=== PATIENT | female | born 1975 | race Caucasian/White ===

== ENCOUNTER 2017-06-01 03:52 | Emergency (ER) | payer OTHER ==
[~2017-06-01] VITALS: Ht 167.6 cm; Wt 59.1 kg
[~2017-06-01 03:52] MED LIST: Z.0.NO CURRENT MEDS
[2017-06-01 04:03] VITALS: BP 172/98; PULSE 80; RESP 14; TEMP 98.1; O2SAT 100
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
[2017-06-01 04:50] LABS: AUTOMATED NEUTROPHIL # 3.8 TH/MM3 (1.8-7.7); BASOPHIL % 0.6 % (0.0-2.0); EOSINOPHIL # 0.1 TH/MM3 (0-0.4); EOSINOPHIL % 1.1 % (0.0-4.0); HEMATOCRIT 36.9 % (35.0-46.0); HEMO FLAGS DIFF FINAL; LYMPHOCYTE # 3.1 TH/MM3 (1.0-4.8); MEAN CELL VOLUME 85.6 FL (80.0-100.0); MEAN CORPUSCULAR HEMOGLOBIN 28.7 PG (27.0-34.0); MEAN CORPUSCULAR HGB CONC 33.5 % (32.0-36.0); MONO % 5.7 % (0.0-8.0); NEUT % 50.6 % (16.0-70.0); PLATELET COUNT 242 TH/MM3 (150-450); RED BLOOD COUNT 4.31 MIL/MM3 (4.00-5.30); RED CELL DISTRIBUTION WIDTH 14.8 % (11.6-17.2); WHITE BLOOD COUNT 7.5 TH/MM3 (4.0-11.0)
[2017-06-01 04:53] LABS: ALT (GPT) 17 U/L (10-53); ANION GAP 6 MEQ/L (5-15); AST (GOT) 12 U/L (15-37); BICARBONATE 28.2 MEQ/L (21.0-32.0); BLOOD UREA NITROGEN 9 MG/DL (7-18); CHLORIDE 107 MEQ/L (98-107); GLOMERULAR FILTRATION RATE 100 ML/MIN (>89); POTASSIUM 4.4 MEQ/L (3.5-5.1); SODIUM (NA) 141 MEQ/L (136-145)
[2017-06-01 04:56] LABS: ALKALINE PHOSPHATASE 72 U/L (45-117); TOTAL BILIRUBIN ADULT 0.2 MG/DL (0.2-1.0)
[2017-06-01 05:02] LABS: ACETAMINOPHEN LESS THAN 2.0 MCG/ML (10.0-30.0); ALCOHOL 17 MG/DL (0-5)
[2017-06-01 08:18] VITALS: BP 144/89; RESP 16; O2SAT 100
[2017-06-01 09:53] LABS: BLOOD, URINE NEG (NEG); COMMENT (UR) CULT NOT INDICATED; CULTURE IF INDICATED CULT NOT INDICATED; GLUCOSE,URINE NEG (NEG); KETONE, URINE NEG (NEG); MUCUS URINE FEW /lpf (OCC); NITRITE,URINE NEG (NEG); PH, URINE 6.5 (5.0-8.5); SQUAMOUS EPITHELIAL CELL URINE 1 /hpf (0-5); URINE COLOR YELLOW (YELLW/STRAW)
[2017-06-01 17:28] VITALS: BP 150/88; PULSE 80; RESP 18; O2SAT 99
[2017-06-02 06:14] VITALS: BP 134/76; PULSE 95; RESP 18; O2SAT 99
[2017-06-02 09:30] VITALS: BP 150/88; PULSE 95; RESP 18; O2SAT 100
--- NOTE | 2017-06-02 09:32 | PD ---
Physical Exam Date Seen by Provider: Jun 02, 2017 Time Seen by Provider: 09:29 Data Data Last Documented VS Vital Signs Date Time Temp Pulse Resp B/P (MAP) Pulse Ox O2 Delivery O2 Flow Rate FiO2 06/02/17 06:14 95 18 134/76 (95) 99 Room Air 06/01/17 04:03 98.1 Orders Orders Complete Blood Count With Diff (06/01/17 04:09) Comprehensive Metabolic Panel (06/01/17 04:09) Urinalysis - C+S If Indicated (06/01/17 04:09) Psych Screen (06/01/17 04:09) Drug Screen, Random Urine (06/01/17 04:09) Alcohol (Ethanol) (06/01/17 04:09) Salicylates (Aspirin) (06/01/17 04:09) Tylenol (Acetaminophen) (06/01/17 04:09) Diet Regular Basic (06/01/17 Breakfast) Diet Regular Basic (06/01/17 Dinner) Ed Discharge Order (06/02/17 09:28) Labs Laboratory Tests Test 06/01/17 04:30 06/01/17 09:30 White Blood Count 7.5 TH/MM3 Red Blood Count 4.31 MIL/MM3 Hemoglobin 12.4 GM/DL Hematocrit 36.9 % Mean Corpuscular Volume 85.6 FL Mean Corpuscular Hemoglobin 28.7 PG Mean Corpuscular Hemoglobin Concent 33.5 % Red Cell Distribution Width 14.8 % Platelet Count 242 TH/MM3 Mean Platelet Volume 8.7 FL Neutrophils (%) (Auto) 50.6 % Lymphocytes (%) (Auto) 42.0 % Monocytes (%) (Auto) 5.7 % Eosinophils (%) (Auto) 1.1 % Basophils (%) (Auto) 0.6 % Neutrophils # (Auto) 3.8 TH/MM3 Lymphocytes # (Auto) 3.1 TH/MM3 Monocytes # (Auto) 0.4 TH/MM3 Eosinophils # (Auto) 0.1 TH/MM3 Basophils # (Auto) 0.0 TH/MM3 CBC Comment DIFF FINAL Differential Comment Blood Urea Nitrogen 9 MG/DL Creatinine 0.65 MG/DL Random Glucose 86 MG/DL Total Protein 7.5 GM/DL Albumin 3.8 GM/DL Calcium Level 8.1 MG/DL Alkaline Phosphatase 72 U/L Aspartate Amino Transf (AST/SGOT) 12 U/L Alanine Aminotransferase (ALT/SGPT) 17 U/L Total Bilirubin 0.2 MG/DL Sodium Level 141 MEQ/L Potassium Level 4.4 MEQ/L Chloride Level 107 MEQ/L Carbon Dioxide Level 28.2 MEQ/L Anion Gap 6 MEQ/L Estimat Glomerular Filtration Rate 100 ML/MIN Salicylates Level 2.9 MG/DL Acetaminophen Level LESS THAN 2.0 MCG/ML Ethyl Alcohol Level 17 MG/DL Urine Color YELLOW Urine Turbidity CLEAR Urine pH 6.[address] 1.017 Urine Protein NEG mg/dL Urine Glucose (UA) NEG mg/dL Urine Ketones NEG mg/dL Urine Occult Blood NEG Urine Nitrite NEG Urine Bilirubin NEG Urine Urobilinogen LESS THAN 2.0 MG/DL Urine Leukocyte Esterase TRACE Urine RBC 1 /hpf Urine WBC 7 /hpf Urine Squamous Epithelial Cells 1 /hpf Urine Mucus FEW /lpf Microscopic Urinalysis Comment CULT NOT INDICATED Urine Opiates Screen NEG Urine Barbiturates Screen NEG Urine Amphetamines Screen NEG Urine Benzodiazepines Screen NEG Urine Cocaine Screen POS Urine Cannabinoids Screen POS MDM Medical Record Reviewed: Yes Supervised Visit with STEPHIE: Yes Narrative Course 41 year-old female presented to the emergency room previously under dang act for suicidal ideations. No plan. No medical complaints. Seen by psychiatrist and dang act lifted; patient is not felt to be a threat to self or others. Follow-up per psychiatrist recommendation. Patient is stable for discharge. Diagnosis Primary Impression: Medical clearance for psychiatric admission Scripts No Active Prescriptions or Reported Meds Disposition: 01 DISCHARGE HOME Condition: Stable Mary Ramos Jun 02, 2017 09:32
--- NOTE | 2017-06-02 12:26 | PD ---
History of Present Illness Chief Complaint: Psychiatric Symptoms Time Seen by Provider: 08:45 Travel History International Travel<30 Days: No Contact w/Intl Traveler<30days: No Known affected area: No Legal Status Legal Status: Dubon Act Dubon Act Signed By: Lachelle Galindo Dubon Act Comment: ZORA LOPEZ Badge#[id number], Case#[id number], 06/01/17 , 0310am History of Present Illness: Patient brought in under a Dubon act for suicidal behavior. At this time, the patient denies any suicidal or homicidal ideation, plan or intent. She demonstrates no psychotic thinking and her cognition is intact. She is verbally rigoberto for safety and she is competent to do so. She was noted to be positive for cocaine and this was discussed with her. Patient would like to go home and seek follow up on an outpatient basis. This physician recommended her for treatment at [facility] ([facility] She is able to care for herself and she does not meet Dubon act criteria at this time. PFSH Past Medical History Bipolar Disorder: Yes Anxiety: Yes Depression: Yes Diabetes: No Diminished Hearing: No Psychiatric: Yes (ptsd) Reproductive: Yes (OVARIAN CYST) Immunizations Current: Yes Tetanus Vaccination: > 5 Years Influenza Vaccination: No ?: Not LMP: 05/25/17 : 4 Para: 2 Miscarriage: 2 Ovarian Cysts: Yes Dilation and Curettage (D&C): Yes (*2) Tubal Ligation: Yes Past Surgical History Section: Yes (X2) Gynecologic Surgery: Yes Psychiatric History Psychiatric History Hx Psychiatric Treatment: Last admitted to [facility] 2 months ago. History of Inpatient Treatment: Yes Guns or firearms in home: No Social History Hx Alcohol Use: Yes Hx Tobacco Use: No (2PPW) Hx Substance Use: Yes Substance Use Type: Marijuana, Nicotine/Cigarettes, Cocaine Other Substances Used: Pt says that she uses street drugs to self medicate Hx of Substance Use Treatment: Yes Allergies-Medications (Allergen,Severity, Reaction): Coded Allergies: iodine (Unverified Allergy, Severe, Anaphylaxis, 06/01/17) potassium iodide (Unverified Allergy, Severe, Anaphylaxis, 06/01/17) povidone-iodine (Unverified Allergy, Severe, Anaphylaxis, 06/01/17) sodium iodide (Unverified Allergy, Severe, Anaphylaxis, 06/01/17) sodium iodide (Unverified Allergy, Severe, Anaphylaxis, 06/01/17) Reported Meds & Prescriptions Reported Meds & Active Scripts Active No Active Prescriptions or Reported Medications Review of Systems Except as stated in HPI: all other systems reviewed are Neg Mental Status Examination Appearance: Appropriate Consciousness: Alert Orientation: x4 Motor Activity: Normal gait Speech: Unremarkable Language: Adequate Fund of Knowledge: Adequate Attention and Concentration: Adequate Memory: Unremarkable Mood: Appropriate Affect: Appropriate Thought Process & Associations: Intact Thought Content: Appropriate Hallucination Type: None Delusion Type: None Suicidal Ideation: No Suicidal Plan: No Suicidal Intention: No Homicidal Ideation: No Homicidal Plan: No Homicidal Intention: No Insight: Adequate Judgment: Adequate MDM Medical Decision Making Medical Record Reviewed: Yes Assessment/Plan Patient interviewed at bedside, medical record reviewed and case discussed with nurse, Phil. Patient informed by this physician that she should discontinue use of cocaine and seek follow up treatment at [facility] ([facility]). However, she does not meet Dubon act criteria and she is verbally and competently rigoberto for safety. Therefore, this physician is lifting her Dubon act and discharging her to friends and family. Orders Orders Diet Regular Basic (06/01/17 Dinner) Ed Discharge Order (06/02/17 09:28) Results Vital Signs Date Time Temp Pulse Resp B/P (MAP) Pulse Ox O2 Delivery O2 Flow Rate FiO2 06/02/17 09:33 06/02/17 09:30 95 18 150/88 (108) 100 Room Air 06/02/17 06:14 95 18 134/76 (95) 99 Room Air 06/01/17 17:28 80 18 150/88 (108) 99 Room Air Diagnosis Primary Impression: Cocaine abuse Additional Impression: Medical clearance for psychiatric admission Referrals: [facility] (Out patient) as needed [facility] as needed Mental Health and Substance Abuse Departure Forms: Tests/Procedures Patient Instructions: General Instructions, Cocaine Abuse (ED), Medical Clearance for Psychiatric Care (ED) Additional Instructions: DX: Cocaine Abuse Please return to ED if symptoms worsen. Prescriptions No Active Prescriptions or Reported Meds Disposition: 01 DISCHARGE HOME Condition: Stable Problem Qualifiers Leo Cedeño MD Jun 02, 2017 12:26
== END 2017-06-02 10:54 | disposition home or self-care (01) ==
LOC: NEPD 03:52 → NEPJ 06-02 10:54
DX: Z02.89 Encounter for other administrative examinations (principal); F14.10 Cocaine abuse, uncomplicated; Z86.59 Personal history of other mental and behavioral disorders
CPT/HCPCS: 80053; 80307; 81001; 85025; 99284

== ENCOUNTER 2017-07-15 08:22 | Emergency (ER) | payer OTHER ==
[~2017-07-15] VITALS: Ht 170.2 cm; Wt 57.0 kg
[2017-07-15 08:52] VITALS: BP 152/94; PULSE 99; RESP 24; TEMP 97.8; O2SAT 98
[2017-07-15] MEDS ORDERED: LORazepam 2 MG/ML VIAL IV PUSH ONE (09:00)
--- NOTE | 2017-07-15 09:01 | PD ---
HPI Chief Complaint: Psychiatric Symptoms Time Seen by Provider: 08:55 Travel History International Travel<30 days: No Contact w/Intl Traveler<30days: No Traveled to known affect area: No History of Present Illness HPI 41-year-old female presents to emergency department as a Dubon act from [place]. Patient has difficulty giving us information regarding her history and speaks in short sentences and rarely make sense. The police suspected she was on Renee. Patient denies suicidal or homicidal ideations. PFSH Past Medical History Bipolar Disorder: Yes Anxiety: Yes Depression: Yes Diabetes: No Diminished Hearing: No Psychiatric: Yes (ptsd) Reproductive: Yes (OVARIAN CYST) Immunizations Current: Yes ?: Not LMP: JUN 2017 : 4 Para: 2 Miscarriage: 2 Ovarian Cysts: Yes Dilation and Curettage (D&C): Yes (*2) Tubal Ligation: Yes Past Surgical History Section: Yes (X2) Gynecologic Surgery: Yes Social History Alcohol Use: Yes Tobacco Use: No (2PPW) Substance Use: Yes Allergies-Medications (Allergen,Severity, Reaction): Coded Allergies: iodine (Unverified Allergy, Severe, Anaphylaxis, 07/15/17) potassium iodide (Unverified Allergy, Severe, Anaphylaxis, 07/15/17) povidone-iodine (Unverified Allergy, Severe, Anaphylaxis, 07/15/17) sodium iodide (Unverified Allergy, Severe, Anaphylaxis, 07/15/17) sodium iodide (Unverified Allergy, Severe, Anaphylaxis, 07/15/17) Reported Meds & Prescriptions Reported Meds & Active Scripts Active No Active Prescriptions or Reported Medications Review of Systems Except as stated in HPI: all other systems reviewed are Neg Physical Exam Narrative GENERAL: Well-developed well-nourished in mild distress SKIN: Focused skin assessment warm/dry. HEAD: Atraumatic. Normocephalic. EYES: Pupils equal and round. No scleral icterus. No injection or drainage. ENT: No nasal bleeding or discharge. Mucous membranes pink and moist. NECK: Trachea midline. No JVD. CARDIOVASCULAR: Regular rate and rhythm. No murmur appreciated. RESPIRATORY: No accessory muscle use. Clear to auscultation. Breath sounds equal bilaterally. MUSCULOSKELETAL: No obvious deformities. No clubbing. No cyanosis. No edema. NEUROLOGICAL: Awake and alert. No obvious cranial nerve deficits. Motor grossly within normal limits. Normal speech. PSYCHIATRIC: Mood normal, moving around in bed anxious Data Data Last Documented VS Vital Signs Date Time Temp Pulse Resp B/P (MAP) Pulse Ox O2 Delivery O2 Flow Rate FiO2 07/15/17 17:15 84 16 114/80 (91) 97 Room Air 07/15/17 08:52 97.8 Orders Orders Complete Blood Count With Diff (07/15/17 08:58) Comprehensive Metabolic Panel (07/15/17 08:58) Ed Urine Pregnancytest Poc (07/15/17 08:58) Psych Screen (07/15/17 08:58) Lorazepam Inj (Ativan Inj) (07/15/17 09:00) Drug Screen, Random Urine (07/15/17 08:58) Alcohol (Ethanol) (07/15/17 08:58) Salicylates (Aspirin) (07/15/17 08:58) Tylenol (Acetaminophen) (07/15/17 08:58) Potassium Chloride (Kcl) (07/15/17 10:00) Diet Regular Basic (07/15/17 Dinner) Tramadol (Ultram) (07/15/17 18:45) Labs Laboratory Tests Test 07/15/17 09:10 White Blood Count 12.0 TH/MM3 Red Blood Count 4.50 MIL/MM3 Hemoglobin 13.9 GM/DL Hematocrit 39.3 % Mean Corpuscular Volume 87.3 FL Mean Corpuscular Hemoglobin 30.9 PG Mean Corpuscular Hemoglobin Concent 35.4 % Red Cell Distribution Width 15.1 % Platelet Count 251 TH/MM3 Mean Platelet Volume 9.2 FL Neutrophils (%) (Auto) 67.5 % Lymphocytes (%) (Auto) 21.1 % Monocytes (%) (Auto) 9.4 % Eosinophils (%) (Auto) 1.3 % Basophils (%) (Auto) 0.7 % Neutrophils # (Auto) 8.1 TH/MM3 Lymphocytes # (Auto) 2.5 TH/MM3 Monocytes # (Auto) 1.1 TH/MM3 Eosinophils # (Auto) 0.2 TH/MM3 Basophils # (Auto) 0.1 TH/MM3 CBC Comment DIFF FINAL Differential Comment Blood Urea Nitrogen 22 MG/DL Creatinine 0.96 MG/DL Random Glucose 91 MG/DL Total Protein 8.0 GM/DL Albumin 4.4 GM/DL Calcium Level 8.7 MG/DL Alkaline Phosphatase 76 U/L Aspartate Amino Transf (AST/SGOT) 19 U/L Alanine Aminotransferase (ALT/SGPT) 21 U/L Total Bilirubin 0.9 MG/DL Sodium Level 137 MEQ/L Potassium Level 3.2 MEQ/L Chloride Level 105 MEQ/L Carbon Dioxide Level 24.2 MEQ/L Anion Gap 8 MEQ/L Estimat Glomerular Filtration Rate 64 ML/MIN Salicylates Level 2.6 MG/DL Urine Opiates Screen NEG Acetaminophen Level LESS THAN 2.0 MCG/ML Urine Barbiturates Screen NEG Urine Amphetamines Screen POS Urine Benzodiazepines Screen POS Urine Cocaine Screen POS Urine Cannabinoids Screen POS Ethyl Alcohol Level LESS THAN 3 MG/DL MDM Medical Decision Making Medical Screen Exam Complete: Yes Emergency Medical Condition: Yes Differential Diagnosis Suicidal ideations versus homicidal ideations versus substance abuse versus substance abuse Narrative Course 41-year-old female presents to emergency department as a Dubon act from [place]. Patient has difficulty giving us information regarding her history and speaks in short sentences and rarely make sense. The police suspected she was on Renee. Patient denies suicidal or homicidal ideations. Vital signs stable Labs- positive for cannabinoids, cocaine, benzos, and amphetamines. Patient cleared to see psych. Dr. Cedeño saw this patient and lifted the BA as it was not an appropriate action for this patient. Pt was on drugs at the time. Pt was allowed to sober and was reassessed multiple times throughout her visit. Pt was complaining of pain and administered tramadol. By mouth challenge successful. Patient up and about during able to ambulate and urinate on her own. Patient is discharge. Advised to return to primary care physician for follow-up. Avoid drugs and alcohol. Follow up with Ryan Martinez. Return to the emergency department for worsening persistent symptoms. Diagnosis Primary Impression: Cocaine abuse Additional Impression: Polysubstance abuse Referrals: Primary Care Physician Additional Instructions: Follow up with Ryan Martinez. Follow-up with primary care within 2-3 days. If your symptoms persist or worsen return to the emergency department Scripts No Active Prescriptions or Reported Meds Disposition: 01 DISCHARGE HOME Condition: Stable Shanelle Small Jul 15, 2017 09:01
[2017-07-15 09:37] LABS: AUTOMATED NEUTROPHIL # 8.1 TH/MM3 (1.8-7.7); BASOPHIL # 0.1 TH/MM3 (0-0.2); BASOPHIL % 0.7 % (0.0-2.0); EOSINOPHIL # 0.2 TH/MM3 (0-0.4); EOSINOPHIL % 1.3 % (0.0-4.0); HEMATOCRIT 39.3 % (35.0-46.0); HEMO FLAGS DIFF FINAL; LYMPH % 21.1 % (9.0-44.0); LYMPHOCYTE # 2.5 TH/MM3 (1.0-4.8); MEAN CELL VOLUME 87.3 FL (80.0-100.0); MEAN CORPUSCULAR HEMOGLOBIN 30.9 PG (27.0-34.0); MEAN CORPUSCULAR HGB CONC 35.4 % (32.0-36.0); MONO % 9.4 % (0.0-8.0); NEUT % 67.5 % (16.0-70.0); PLATELET COUNT 251 TH/MM3 (150-450); RED CELL DISTRIBUTION WIDTH 15.1 % (11.6-17.2)
[2017-07-15 09:51] LABS: ANION GAP 8 MEQ/L (5-15); AST (GOT) 19 U/L (15-37); BICARBONATE 24.2 MEQ/L (21.0-32.0); BLOOD UREA NITROGEN 22 MG/DL (7-18); CHLORIDE 105 MEQ/L (98-107); GLOMERULAR FILTRATION RATE 64 ML/MIN (>89); POTASSIUM 3.2 MEQ/L (3.5-5.1); SODIUM (NA) 137 MEQ/L (136-145)
[2017-07-15 09:52] LABS: ALT (GPT) 21 U/L (10-53)
[2017-07-15 09:54] LABS: ALKALINE PHOSPHATASE 76 U/L (45-117); TOTAL BILIRUBIN ADULT 0.9 MG/DL (0.2-1.0)
[2017-07-15 09:55] LABS: ACETAMINOPHEN LESS THAN 2.0 MCG/ML (10.0-30.0); ALCOHOL LESS THAN 3 MG/DL (0-5)
[2017-07-15] MEDS ORDERED: POTASSIUM CHLORIDE 10 MEQ CONTROLLED RELEASE TAB PO ONE (10:00)
--- NOTE | 2017-07-15 13:17 | PD ---
History of Present Illness Chief Complaint: Psychiatric Symptoms Time Seen by Provider: 13:00 Travel History International Travel<30 Days: No Contact w/Intl Traveler<30days: No Known affected area: No Legal Status Legal Status: [place] Act History of Present Illness: 41-year-old female under inappropriate [place] act by police, positive for benzodiazepines, cocaine, cannabinoids, and amphetamines. [place] act law does not apply to people who have primary drug and alcohol issues. Patient apparently arrived still intoxicated and therefore this physician cannot recommend discharge until ED attending feels patient is safe to go. However, [place] act is being lifted as it does not apply to this individual and she is not threatening or attempting to harm herself. PFSH Past Medical History Bipolar Disorder: Yes Anxiety: Yes Depression: Yes Diabetes: No Diminished Hearing: No Psychiatric: Yes (ptsd) Reproductive: Yes ([employer] CYST) Immunizations Current: Yes ?: Not LMP: JUN 2017 : 4 Para: 2 Miscarriage: 2 Ovarian Cysts: Yes Dilation and Curettage (D&C): Yes Tubal Ligation: Yes Past Surgical History Section: Yes (X2) Gynecologic Surgery: Yes Psychiatric History Psychiatric History Hx Psychiatric Treatment: Last admitted to [facility] 2 months ago. History of Inpatient Treatment: Yes Guns or firearms in home: No Social History Hx Alcohol Use: Yes Hx Tobacco Use: Yes Hx Substance Use: Yes Substance Use Type: Marijuana, Nicotine/Cigarettes, Cocaine Other Substances Used: Pt says that she uses street drugs to self medicate Hx of Substance Use Treatment: Yes Allergies-Medications (Allergen,Severity, Reaction): Coded Allergies: iodine (Unverified Allergy, Severe, Anaphylaxis, 07/15/17) potassium iodide (Unverified Allergy, Severe, Anaphylaxis, 07/15/17) povidone-iodine (Unverified Allergy, Severe, Anaphylaxis, 07/15/17) sodium iodide (Unverified Allergy, Severe, Anaphylaxis, 07/15/17) sodium iodide (Unverified Allergy, Severe, Anaphylaxis, 07/15/17) Reported Meds & Prescriptions Reported Meds & Active Scripts Active No Active Prescriptions or Reported Medications Review of Systems Except as stated in HPI: all other systems reviewed are Neg Mental Status Examination Appearance: Disheveled Consciousness: Lethargic Orientation: Person, Place Motor Activity: Abnormal gait Speech: Other Language: Adequate Fund of Knowledge: Adequate Attention and Concentration: Inadequate Memory: Unremarkable Mood: Appropriate Affect: Appropriate Thought Process & Associations: Intact Thought Content: Appropriate Hallucination Type: None Delusion Type: None Suicidal Ideation: No Suicidal Plan: No Suicidal Intention: No Homicidal Ideation: No Homicidal Plan: No Homicidal Intention: No Insight: Fair Judgment: Impulsive MDM Medical Decision Making Medical Record Reviewed: Yes Assessment/Plan Patient interviewed at bedside. Medical record reviewed. Case discussed with nurse Cher. [place] act being lifted. Patient should be referred back to [facility], where she has recently been treated for drug abuse. Patient does not meet criteria for [place] act or involuntary psychiatric hospitalization. This physician acknowledges the patient remains at risk for self-harm due to her ongoing drug abuse, but this is both unpredictable and unavoidable. It is counter therapeutic to admit her to a psychiatric facility that is not licensed for the treatment of drug and alcohol abuse. Orders Orders Complete Blood Count With Diff (07/15/17 08:58) Comprehensive Metabolic Panel (07/15/17 08:58) Ed Urine Pregnancytest Poc (07/15/17 08:58) Psych Screen (07/15/17 08:58) Lorazepam Inj (Ativan Inj) (07/15/17 09:00) Drug Screen, Random Urine (07/15/17 08:58) Alcohol (Ethanol) (07/15/17 08:58) Salicylates (Aspirin) (07/15/17 08:58) Tylenol (Acetaminophen) (07/15/17 08:58) Potassium Chloride (Kcl) (07/15/17 10:00) Results Vital Signs Date Time Temp Pulse Resp B/P (MAP) Pulse Ox O2 Delivery O2 Flow Rate FiO2 07/15/17 08:52 97.8 99 24 152/94 (113) 98 Laboratory Tests Test 07/15/17 09:10 White Blood Count 12.0 Red Blood Count 4.50 Hemoglobin 13.9 Hematocrit 39.3 Mean Corpuscular Volume 87.3 Mean Corpuscular Hemoglobin 30.9 Mean Corpuscular Hemoglobin Concent 35.4 Red Cell Distribution Width 15.1 Platelet Count 251 Mean Platelet Volume 9.2 Neutrophils (%) (Auto) 67.5 Lymphocytes (%) (Auto) 21.1 Monocytes (%) (Auto) 9.4 Eosinophils (%) (Auto) 1.3 Basophils (%) (Auto) 0.7 Neutrophils # (Auto) 8.1 Lymphocytes # (Auto) 2.5 Monocytes # (Auto) 1.1 Eosinophils # (Auto) 0.2 Basophils # (Auto) 0.1 CBC Comment DIFF FINAL Differential Comment Blood Urea Nitrogen 22 Creatinine 0.96 Random Glucose 91 Total Protein 8.0 Albumin 4.4 Calcium Level 8.7 Alkaline Phosphatase 76 Aspartate Amino Transf (AST/SGOT) 19 Alanine Aminotransferase (ALT/SGPT) 21 Total Bilirubin 0.9 Sodium Level 137 Potassium Level 3.2 Chloride Level 105 Carbon Dioxide Level 24.2 Anion Gap 8 Estimat Glomerular Filtration Rate 64 Salicylates Level 2.6 Urine Opiates Screen NEG Acetaminophen Level LESS THAN 2.0 Urine Barbiturates Screen NEG Urine Amphetamines Screen POS Urine Benzodiazepines Screen POS Urine Cocaine Screen POS Urine Cannabinoids Screen POS Ethyl Alcohol Level LESS THAN 3 Diagnosis Primary Impression: Polysubstance abuse Prescriptions No Active Prescriptions or Reported Meds Leo Cedeño MD Jul 15, 2017 13:17
[2017-07-15 17:15] VITALS: BP 114/80; PULSE 84; RESP 16; O2SAT 97
[2017-07-15] MEDS ORDERED: traMADol HCL 50 MG TAB PO ONE (18:45)
== END 2017-07-15 19:34 | disposition home or self-care (01) ==
LOC: NEPD 08:22
DX: F14.10 Cocaine abuse, uncomplicated (principal); F12.10 Cannabis abuse, uncomplicated; F15.10 Other stimulant abuse, uncomplicated; F31.9 Bipolar disorder, unspecified; F43.10 Post-traumatic stress disorder, unspecified; F41.9 Anxiety disorder, unspecified; F17.200 Nicotine dependence, unspecified, uncomplicated; Z88.8 Allergy status to other drugs, medicaments and biological substances
CPT/HCPCS: 80053; 80307; 84703; 85025; 96374; 99285; J2060